=== PATIENT | female | born 1945 | race Caucasian/White ===

== ENCOUNTER → 2017-11-15 | Outpatient (CLI) | payer MEDICARE, BC | END | disposition home or self-care (01) | LOC: HKI 09:38 | DX: M25.562 Pain in left knee (principal); I10 Essential (primary) hypertension; Z88.0 Allergy status to penicillin; Z88.2 Allergy status to sulfonamides; Z96.652 Presence of left artificial knee joint | CPT/HCPCS: 20610 ==